=== PATIENT | female | born 1985 | race Hispanic/Latino ===

== ENCOUNTER 2019-03-07 23:58 | Emergency (ER) | payer SELFPAY ==
[2019-03-08] MEDS ORDERED: TYLENOL PO ONE (03:06)
[2019-03-08] MEDS ORDERED: IBUPROFEN PO ONE (03:06)
--- NOTE | 2019-03-08 04:25 | Emergency Department Report ---
ED Fall HPI - General Chief Complaint: Extremity Injury, Upper Stated Complaint: LEFT WRIST PAIN Source: patient Mode of arrival: Ambulatory - History of Present Illness Initial Comments: Patient is a 34-year-old white female with no past medical history presents to the ED with component of acute onset persistent severe left wrist pain after she tripped the house and fell down landing on the left wrist about 4 hours ago. Patient states that pain is worse with any active range of motion of the left wrist. Patient denies head or neck injury, chest pain, shortness of breath, numbness and tingling of left arm, abdominal pain, low back pain, dizziness, syncope or seizures. MD Complaint: fall, other (left wrist pain) -: Sudden, hour(s) (4) Fall From: standing, other (slipped and fell down on floor) When Fall Occurred: 1-3 hours [employer] Fall Witnessed: yes, by bystander Place Fall Occurred: home Loss of Consciousness: none Prolonged Down Time?: no Symptoms Prior to Fall: none, other (tripped) Location: other (left wrist) Location - Extremities: Left: Forearm (left forearm), Hand (left wrist) Severity: severe Severity scale (0 -10): 6 Quality: sharp, aching Context: tripped/slipped Associated Symptoms: denies: headache, neck pain, numbness, chest paint, shortness of breath, abdominal pain, hematuria, unable to walk, lightheaded, vertigo, confusion, other - Related Data Previous Rx's Medication Instructions Recorded Last Taken Type Cyclobenzaprine HCl [Flexeril 5 MG 5 mg PO Q8H PRN #15 tab 03/08/19 Unknown Rx TAB] Naproxen [Naprosyn TAB] 375 mg PO Q12H PRN #20 tablet 03/08/19 Unknown Rx ED Review of Systems ROS: Stated complaint: LEFT WRIST PAIN Other details as noted in HPI Constitutional: denies: chills, fever Eyes: denies: eye pain, eye discharge, vision change ENT: denies: ear pain, throat pain Respiratory: denies: cough, shortness of breath, wheezing Cardiovascular: denies: chest pain, palpitations Endocrine: no symptoms reported Gastrointestinal: denies: abdominal pain, nausea, diarrhea Genitourinary: denies: urgency, dysuria, discharge Musculoskeletal: arthralgia (LEFT WRIST). denies: back pain, joint swelling Skin: denies: rash, lesions Neurological: denies: headache, weakness, paresthesias Psychiatric: denies: anxiety, depression Hematological/Lymphatic: denies: easy bleeding, easy bruising ED Past Medical Hx - Past Medical History Previous Medical History?: No - Surgical History Past Surgical History?: Yes Additional Surgical History: c-Sec X2 - Social History Smoking Status: Current Every Day Smoker Substance Use Type: Cocaine, Marijuana - Medications Home Medications: Home Medications Medication Instructions Recorded Confirmed Last Taken Type Cyclobenzaprine HCl [Flexeril 5 MG 5 mg PO Q8H PRN #15 tab 03/08/19 Unknown Rx TAB] Naproxen [Naprosyn TAB] 375 mg PO Q12H PRN #20 tablet 03/08/19 Unknown Rx ED Physical Exam - General Limitations: No Limitations General appearance: alert, in no apparent distress - Head Head exam: Present: atraumatic, normocephalic, normal inspection - Eye Eye exam: Present: normal appearance, PERRL, EOMI Pupils: Present: normal accommodation - ENT ENT exam: Present: normal exam, normal orophraynx, mucous membranes moist, TM's normal bilaterally, normal external ear exam - Neck Neck exam: Present: normal inspection, full ROM - Respiratory Respiratory exam: Present: normal lung sounds bilaterally. Absent: respiratory distress, wheezes, rales, rhonchi, chest wall tenderness, decreased breath sounds - Cardiovascular Cardiovascular Exam: Present: regular rate, normal rhythm, normal heart sounds. Absent: systolic murmur, diastolic murmur, rubs, gallop - GI/Abdominal GI/Abdominal exam: Present: soft, normal bowel sounds. Absent: distended, ten derness, guarding, rebound, hyperactive bowel sounds, hypoactive bowel sounds, organomegaly - Extremities Exam Extremities exam: Present: normal inspection, full ROM, tenderness (Left wrist tenderness), normal capillary refill - Back Exam Back exam: Present: normal inspection, full ROM. Absent: tenderness, CVA tenderness (R), CVA tenderness (L), muscle spasm, paraspinal tenderness - Neurological Exam Neurological exam: Present: alert, oriented X3, CN II-XII intact, normal gait, reflexes normal - Psychiatric Psychiatric exam: Present: normal affect, normal mood - Skin Skin exam: Present: warm, dry, intact, normal color. Absent: rash ED Course Vital Signs 03/08/19 00:03 Temperature 98.2 F Pulse Rate 91 H Respiratory 16 Rate Blood Pressure 105/64 O2 Sat by Pulse 98 Oximetry - Reevaluation(s) Reevaluation #1: 03/08/19 04:48 This is a 34-year-old female who presented to the ED with left wrist pain after she tripped and fell down on the floor about 4 hours ago. In the ED, patient is alert and oriented 3 and is not in distress but appears to be in pain. Vital signs are stable. Left wrist x-ray shows no acute fractures or subluxations. Patient was treated for pain and the left wrist splinted with a Velcro splint. Patient was discharged home on pain medications and muscle relaxants and advised to follow-up with her primary care physician in 5-7 days for reevaluation. Patient was also advised to return to the ED immediately if symptoms get worse. ED Medical Decision Making - Radiology Data Left wrist x-ray shows no acute fractures or subluxations. - Medical Decision Making This is a 34-year-old female who presented to the ED with left wrist pain after she tripped and fell down on the floor about 4 hours ago. In the ED, patient is alert and oriented 3 and is not in distress but appears to be in pain. Vital signs are stable. Left wrist x-ray shows no acute fractures or subluxations. Patient was treated for pain and the left wrist splinted with a Velcro splint. Patient was discharged home on pain medications and muscle relaxants and advised to follow-up with her primary care physician in 5-7 days for reevaluation. Patient was also advised to return to the ED immediately if symptoms get worse. - Differential Diagnosis wrist fracture; lwrist sprain; forearm contusion Critical care attestation.: If time is entered above; I have spent that time in minutes in the direct care of this critically ill patient, excluding procedure time. ED Disposition Clinical Impression: Sprain of wrist, left Qualifiers: Encounter type: initial encounter Qualified Code(s): S63.502A - Unspecified sprain of left wrist, initial encounter Contusion of left forearm Qualifiers: Encounter type: initial encounter Qualified Code(s): S50.12XA - Contusion of left forearm, initial encounter Disposition: DC- TO HOME OR SELFCARE Is pt being admited?: No Does the pt Need Aspirin: No Condition: Stable Instructions: Wrist Injury (ED), Wrist Sprain (ED), Muscle Strain (ED) Additional Instructions: Take medications with food, drink plenty of fluids and follow up with your Primary care Physician in 5-7 days for further reevaluation. Return to the ED immediately if symptoms get worse. Prescriptions: Cyclobenzaprine HCl [Flexeril 5 MG TAB] 5 mg PO Q8H PRN #15 tab PRN Reason: Muscle Spasm Naproxen [Naprosyn TAB] 375 mg PO Q12H PRN #20 tablet PRN Reason: Pain , Severe (7-10) Referrals: PRIMARY CARE, [Primary Care Provider] - 3-5 Days Time of Disposition: 04:25 Print Language: POLISH
[2019-03-08 05:53] VITALS: BP 118/76
--- NOTE | 2019-03-11 14:21 | XRay Report ---
Left wrist, 4 views INDICATION: fall - left wrist pain. COMPARISON: None. IMPRESSION: No acute osseous or soft tissue abnormality. No significant DJD. Signer Name: Amrit Corrales Jr, MD Signed: 03/11/2019 2:16 PM Workstation Name: [id number]
== END 2019-03-08 04:33 | disposition home or self-care (01) ==
LOC: ED 23:58
DX: S63.502A Unspecified sprain of left wrist, initial encounter (principal); S50.12XA Contusion of left forearm, initial encounter; F17.200 Nicotine dependence, unspecified, uncomplicated; F14.10 Cocaine abuse, uncomplicated; F12.10 Cannabis abuse, uncomplicated; Z98.890 Other specified postprocedural states; W01.0XXA Fall on same level from slipping, tripping and stumbling without subsequent striking against object, initial encounter; Y93.89 Activity, other specified; Y92.89 Other specified places as the place of occurrence of the external cause; Y99.8 Other external cause status

== ENCOUNTER 2019-03-26 21:33 | Emergency (ER) | payer SELFPAY ==
[2019-03-26 21:56] VITALS: BP 103/74
--- NOTE | 2019-03-26 21:56 | Event Note ---
ED Screening Note Date of service: 03/26/19 Time: 21:53 ED Screening Note: 34 y o f presents to Ed cc of rectal pain x 1 hour ago sharp pain intermittent. no blood in stool This initial assessment/diagnostic orders/clinical plan/treatment(s) is/are subject to change based on patients health status, clinical progression and re- assessment by fellow clinical providers in the ED. Further treatment and workup at subsequent clinical providers discretion. Patient/guardian urged not to elope from the ED as their condition may be serious if not clinically assessed and managed. Initial orders include: acc eval
== END 2019-03-26 23:10 | disposition left against medical advice (07) ==
LOC: ED 21:33
DX: K62.89 Other specified diseases of anus and rectum (principal); Z53.21 Procedure and treatment not carried out due to patient leaving prior to being seen by health care provider

== ENCOUNTER 2019-03-27 18:44 | Emergency (ER) | payer SELFPAY ==
[2019-03-27 18:55] VITALS: BP 109/77
--- NOTE | 2019-03-27 18:57 | Event Note ---
ED Screening Note Date of service: 03/27/19 Time: 18:54 ED Screening Note: 34 y o female presents to ED cc of rectal pain pt was here yesterday but left due to the wait time without being seen This initial assessment/diagnostic orders/clinical plan/treatment(s) is/are subject to change based on patients health status, clinical progression and re- assessment by fellow clinical providers in the ED. Further treatment and workup at subsequent clinical providers discretion. Patient/guardian urged not to elope from the ED as their condition may be serious if not clinically assessed and managed. Initial orders include: acc eval
--- NOTE | 2019-03-27 20:50 | Emergency Department Report ---
ED General Adult HPI - General Chief complaint: Rectal Pain Stated complaint: COLON/RECTAL PAIN Time Seen by Provider: 03/27/19 18:54 Source: patient Mode of arrival: Ambulatory Limitations: No Limitations - History of Present Illness Initial comments: Patient is a 34-year-old white female with no past medical history presents to the ED with complaint of acute onset persistent severe rectal pain for the last 2 days. Patient admits to having rectal intercourse with no protection, the last episode of which was 3 days ago. Patient denies vaginal bleeding, hematochezia, dysuria, dizziness, fever, chills, abdominal pain, nausea and vomiting. MD Complaint: Rectal pain -: Sudden, days(s) (3) Location: abdomen (rectum) Radiation: non-radiation Severity scale (0 -10): 1 Quality: burning, aching, sharp Consistency: intermittent Improves with: none Worsens with: none Associated Symptoms: denies other symptoms. denies: confusion, chest pain, cough, diaphoresis, fever/chills, headaches, loss of appetite, nausea/vomiting, shortness of breath, weakness Treatments Prior to Arrival: none - Related Data Previous Rx's Medication Instructions Recorded Last Taken Type Cyclobenzaprine HCl [Flexeril 5 MG 5 mg PO Q8H PRN #15 tab 03/08/19 Unknown Rx TAB] Naproxen [Naprosyn TAB] 375 mg PO Q12H PRN #20 tablet 03/08/19 Unknown Rx Docusate Sodium [Colace CAP] 100 mg PO BID PRN #30 capsule 03/27/19 Unknown Rx Ibuprofen [Motrin] 400 mg PO Q8H PRN #20 tablet 03/27/19 Unknown Rx Allergies Allergy/AdvReac Type Severity Reaction Status Date / Time No Known Allergies Allergy Unverified 03/26/19 21:54 ED Review of Systems ROS: Stated complaint: COLON/RECTAL PAIN Other details as noted in HPI Constitutional: denies: chills, fever Eyes: denies: eye pain, eye discharge, vision change ENT: denies: ear pain, throat pain Respiratory: denies: cough, shortness of breath, wheezing Cardiovascular: denies: chest pain, palpitations Endocrine: no symptoms reported Gastrointestinal: other (RECTAL PAIN). denies: abdominal pain, nausea, vomiting, diarrhea, hematemesis Genitourinary: denies: urgency, dysuria, discharge Musculoskeletal: denies: back pain, joint swelling, arthralgia Skin: denies: rash, lesions Neurological: denies: headache, weakness, paresthesias Psychiatric: denies: anxiety, depression Hematological/Lymphatic: denies: easy bleeding, easy bruising ED Past Medical Hx - Past Medical History Previous Medical History?: No - Surgical History Additional Surgical History: c-Sec X2 - Social History Smoking Status: Current Every Day Smoker Substance Use Type: Alcohol, Cocaine, Marijuana, Methamphetamines - Medications Home Medications: Home Medications Medication Instructions Recorded Confirmed Last Taken Type Cyclobenzaprine HCl [Flexeril 5 MG 5 mg PO Q8H PRN #15 tab 03/08/19 Unknown Rx TAB] Naproxen [Naprosyn TAB] 375 mg PO Q12H PRN #20 tablet 03/08/19 Unknown Rx Docusate Sodium [Colace CAP] 100 mg PO BID PRN #30 capsule 03/27/19 Unknown Rx Ibuprofen [Motrin] 400 mg PO Q8H PRN #20 tablet 03/27/19 Unknown Rx ED Physical Exam - General Limitations: No Limitations General appearance: alert, in no apparent distress - Head Head exam: Present: atraumatic, normocephalic, normal inspection - Eye Eye exam: Present: normal appearance, PERRL, EOMI. Absent: scleral icterus, conjunctival injection, nystagmus, periorbital swelling, periorbital tenderness Pupils: Present: normal accommodation - ENT ENT exam: Present: normal exam, normal orophraynx, mucous membranes moist, TM's normal bilaterally, normal external ear exam - Neck Neck exam: Present: normal inspection, full ROM - Respiratory Respiratory exam: Present: normal lung sounds bilaterally. Absent: respiratory distress, wheezes, rhonchi, stridor, chest wall tenderness, decreased breath sounds - Cardiovascular Cardiovascular Exam: Present: regular rate, normal rhythm, normal heart sounds. Absent: systolic murmur, diastolic murmur, rubs, gallop - GI/Abdominal GI/Abdominal exam: Present: soft, normal bowel sounds. Absent: tenderness, guarding, hyperactive bowel sounds, organomegaly, mass - Rectal Rectal exam: Present: normal inspection, normal rectal tone, fecal impaction. Absent: hemorrhoids, tenderness - Extremities Exam Extremities exam: Present: normal inspection, full ROM, normal capillary refill - Back Exam Back exam: Present: normal inspection, full ROM. Absent: tenderness, CVA tenderness (R), CVA tenderness (L), muscle spasm, paraspinal tenderness - Neurological Exam Neurological exam: Present: alert, oriented X3, CN II-XII intact, normal gait, reflexes normal - Psychiatric Psychiatric exam: Present: normal affect, normal mood - Skin Skin exam: Present: warm, dry, intact, normal color. Absent: rash ED Course Vital Signs 03/27/19 18:54 Temperature 98 F Pulse Rate 68 Respiratory 18 Rate Blood Pressure 109/77 O2 Sat by Pulse 98 Oximetry - Reevaluation(s) Reevaluation #1: 03/27/19 20:49 This is a 34-year-old white female with no past medical history who presented to the ED with acute onset persistent rectal pain for 2 days. Patient is alert and oriented 3 and is not in distress. Patient was discharged home on ibuprofen and Colace to treat rectal pain and constipation respectively. Patient was advised to follow-up with her primary care physician in 7-10 days for reevaluation or return to the ED immediately if symptoms get worse. ED Medical Decision Making - Medical Decision Making This is a 34-year-old white female with no past medical history who presented to the ED with acute onset persistent rectal pain for 2 days. Patient is alert and oriented 3 and is not in distress. Patient was discharged home on ibuprofen and Colace to treat rectal pain and constipation respectively. Patient was advised to follow-up with her primary care physician in 7-10 days fo r reevaluation or return to the ED immediately if symptoms get worse. - Differential Diagnosis RECTAL PAIN; HEMORRHOIDS; CONSTIPATION; RECTAL TEAR Critical care attestation.: If time is entered above; I have spent that time in minutes in the direct care of this critically ill patient, excluding procedure time. ED Disposition Clinical Impression: Anal or rectal pain Constipation Qualifiers: Constipation type: unspecified constipation type Qualified Code(s): K59.00 - Constipation, unspecified Disposition: - TO HOME OR SELFCARE Is pt being admited?: No Does the pt Need Aspirin: No Condition: Stable Instructions: Constipation (ED) Additional Instructions: Drink plenty of fluids and follow-up with your primary care physician in 7-10 days for reevaluation. Return to the ED immediately if symptoms worse. Prescriptions: Docusate Sodium [Colace CAP] 100 mg PO BID PRN #30 capsule PRN Reason: Constipation Ibuprofen [Motrin] 400 mg PO Q8H PRN #20 tablet PRN Reason: Pain , Severe (7-10) Referrals: PRIMARY CARE,MD [Primary Care Provider] - 3-5 Days Time of Disposition: 20:46 Print Language: [id number]
== END 2019-03-27 20:55 | disposition home or self-care (01) ==
LOC: ED 18:44
DX: K59.00 Constipation, unspecified (principal); F17.200 Nicotine dependence, unspecified, uncomplicated; F12.10 Cannabis abuse, uncomplicated; F14.10 Cocaine abuse, uncomplicated
CPT/HCPCS: 99281

== ENCOUNTER 2021-03-06 05:44 | Emergency (ER) | payer SELFPAY ==
[2021-03-06 06:35] VITALS: BP 131/94
[2021-03-06] MEDS ORDERED: HYDROcodone/ACETAMINOPHEN 5-325 MG TAB PO ONE (10:34)
--- NOTE | 2021-03-06 10:44 | Emergency Department Report ---
ED General Adult HPI - General Chief complaint: Extremity Injury, Upper Stated complaint: SOB DIZZINESS NUMBNESS Time Seen by Provider: 03/06/21 10:11 Source: patient Mode of arrival: Ambulatory Limitations: No Limitations - History of Present Illness Initial comments: Patient is a 36-year-old female presents emergency room with complaints of shortness of breath that initially began a couple days ago but has worsened since last night. Patient states that she had a fall and someone fell on her arm a couple days ago and she had a fracture of her humerus and was seen at [facility] at that time and placed in a sling and given orthopedic follow-up . She states that she has not yet seen orthopedic doctor. She states that she was also having URI symptoms at that time and they tested her at [facility] and she was positive for COVID-19. She states her symptoms have been lightheadedness, shortness of breath, cough, diarrhea, subjective fever, chills, body aches, one episode of vomiting. She is able to tolerate p.o. intake. No other past medical history. No allergies to medications. She denies any recent surgery or recent travel. She is a smoker. - Related Data Previous Rx's Medication Instructions Recorded Last Taken Type Cyclobenzaprine HCl [Flexeril 5 MG 5 mg PO Q8H PRN #15 tab 03/08/19 Unknown Rx TAB] Naproxen [Naprosyn TAB] 375 mg PO Q12H PRN #20 tablet 03/08/19 Unknown Rx Docusate Sodium [Colace CAP] 100 mg PO BID PRN #30 capsule 03/27/19 Unknown Rx Ibuprofen [Motrin] 400 mg PO Q8H PRN #20 tablet 03/27/19 Unknown Rx Allergies Allergy/AdvReac Type Severity Reaction Status Date / Time No Known Allergies Allergy Unverified 03/26/19 21:54 ED Review of Systems ROS: Stated complaint: SOB DIZZINESS NUMBNESS Other details as noted in HPI Comment: All other systems reviewed and negative ED Past Medical Hx - Past Medical History Previous Medical History?: No - Surgical History Past Surgical History?: Yes Additional Surgical History: c-Sec X2 - Social History Smoking Status: Current Every Day Smoker Substance Use Type: Alcohol, Cocaine, Marijuana, Methamphetamines - Medications Home Medications: Home Medications Medication Instructions Recorded Confirmed Last Taken Type Cyclobenzaprine HCl [Flexeril 5 MG 5 mg PO Q8H PRN #15 tab 03/08/19 Unknown Rx TAB] Naproxen [Naprosyn TAB] 375 mg PO Q12H PRN #20 tablet 03/08/19 Unknown Rx Docusate Sodium [Colace CAP] 100 mg PO BID PRN #30 capsule 03/27/19 Unknown Rx Ibuprofen [Motrin] 400 mg PO Q8H PRN #20 tablet 03/27/19 Unknown Rx ED Physical Exam - General Limitations: No Limitations General appearance: alert, in no apparent distress - Head Head exam: Present: atraumatic, normocephalic - Eye Eye exam: Present: normal appearance - ENT ENT exam: Present: mucous membranes moist - Respiratory Respiratory exam: Present: normal lung sounds bilaterally. Absent: respiratory distress, wheezes, rales, rhonchi, stridor, chest wall tenderness, accessory muscle use, decreased breath sounds, prolonged expiratory - Cardiovascular Cardiovascular Exam: Present: regular rate, normal rhythm, normal heart sounds. Absent: systolic murmur, diastolic murmur, rubs, gallop - Extremities Exam Extremities exam: Present: other (ecchymosis and ttp to the right humerus, pt has sling, neurovascularly intact) - Neurological Exam Neurological exam: Present: alert, oriented X3 - Psychiatric Psychiatric exam: Present: normal affect, normal mood - Skin Skin exam: Present: warm, dry ED Course Vital Signs 03/06/21 03/06/21 06:33 13:53 Temperature 97.8 F Pulse Rate 86 77 Respiratory 16 Rate Blood Pressure 131/94 O2 Sat by Pulse 97 100 Oximetry ED Medical Decision Making - Lab Data Result diagrams: 03/06/21 10:37 03/06/21 10:37 Lab Results 03/06/21 03/06/21 03/06/21 Range/Units 10:37 10:37 10:37 WBC 6.0 (4.5-11.0) K/mm3 RBC 3.98 (3.65-5.03) M/mm3 Hgb 13.0 (10.1-14.3) gm/dl Hct 37.1 (30.3-42.9) % MCV 93 (79-97) fl MCH 33 H (28-32) pg MCHC 35 H (30-34) % RDW 14.7 (13.2-15.2) % Plt Count 260 (140-440) K/mm3 Lymph % (Auto) 27.9 (13.4-35.0) % Dent % (Auto) 7.4 H (0.0-7.3) % Eos % (Auto) 1.2 (0.0-4.3) % Baso % (Auto) 0.3 (0.0-1.8) % Lymph # (Auto) 1.6 (1.2-5.4) K/mm3 Dent # (Auto) 0.4 (0.0-0.8) K/mm3 Eos # (Auto) 0.1 (0.0-0.4) K/mm3 Baso # (Auto) 0.0 (0.0-0.1) K/mm3 Seg Neutrophils % 63.2 (40.0-70.0) % Seg Neutrophils # 3.7 (1.8-7.7) K/mm3 D-Dimer 641.67 H (0-234) ng/mlDDU Sodium 139 (137-145) mmol/L Potassium 4.0 (3.6-5.0) mmol/L Chloride 102.1 (98-107) mmol/L Carbon Dioxide 31 H (22-30) mmol/L Anion Gap 10 mmol/L BUN 7 (7-17) mg/dL Creatinine 0.4 L (0.6-1.2) mg/dL Estimated GFR > 60 ml/min BUN/Creatinine Ratio 18 % Glucose 95 (65-100) mg/dL Calcium 8.5 (8.4-10.2) mg/dL Total Bilirubin 0.20 (0.1-1.2) mg/dL AST 18 (5-40) units/L ALT 10 (7-56) units/L Alkaline Phosphatase 83 (35-129) units/L Troponin T < 0.010 (0.00-0.029) ng/mL NT-Pro-B Natriuret Pep 92.55 (0-450) pg/mL Total Protein 6.9 (6.3-8.2) g/dL Albumin 3.5 L (3.9-5) g/dL Albumin/Globulin Ratio 1.0 % HCG, Qual (Negative) 03/06/21 Range/Units 10:37 WBC (4.5-11.0) K/mm3 RBC (3.65-5.03) M/mm3 Hgb (10.1-14.3) gm/dl Hct (30.3-42.9) % MCV (79-97) fl MCH (28-32) pg MCHC (30-34) % RDW (13.2-15.2) % Plt Count (140-440) K/mm3 Lymph % (Auto) (13.4-35.0) % Dent % (Auto) (0.0-7.3) % Eos % (Auto) (0.0-4.3) % Baso % (Auto) (0.0-1.8) % Lymph # (Auto) (1.2-5.4) K/mm3 Dent # (Auto) (0.0-0.8) K/mm3 Eos # (Auto) (0.0-0.4) K/mm3 Baso # (Auto) (0.0-0.1) K/mm3 Seg Neutrophils % (40.0-70.0) % Seg Neutrophils # (1.8-7.7) K/mm3 D-Dimer (0-234) ng/mlDDU Sodium (137-145) mmol/L Potassium (3.6-5.0) mmol/L Chloride (98-107) mmol/L Carbon Dioxide (22-30) mmol/L Anion Gap mmol/L BUN (7-17) mg/dL Creatinine (0.6-1.2) mg/dL Estimated GFR ml/min BUN/Creatinine Ratio % Glucose (65-100) mg/dL Calcium (8.4-10.2) mg/dL Total Bilirubin (0.1-1.2) mg/dL AST (5-40) units/L ALT (7-56) units/L Alkaline Phosphatase (35-129) units/L Troponin T (0.00-0.029) ng/mL NT-Pro-B Natriuret Pep (0-450) pg/mL Total Protein (6.3-8.2) g/dL Albumin (3.9-5) g/dL Albumin/Globulin Ratio % HCG, Qual Negative (Negative) - EKG Data EKG shows normal: sinus rhythm, axis, intervals, QRS complexes Rate: normal - EKG Data 03/06/21 13:49 Nonspecific T wave inversion V1 V2 No STEMI - Radiology Data Radiology results: report reviewed Ordering Physician: EDYTA GIRON Date of Service: 03/06/21 Procedure(s): XR chest routine 2V Accession Number(s): [id number] cc: EDYTA GIRON Fluoro Time In Minutes: CHEST 2 VIEWS INDICATION / CLINICAL INFORMATION: SOB. COMPARISON: None available. FINDINGS: SUPPORT DEVICES: None. HEART / MEDIASTINUM: No significant abnormality. LUNGS / PLEURA: No significant pulmonary or pleural abnormality. No pneumothorax. ADDITIONAL FINDINGS: No significant additional findings. IMPRESSION: 1. No acute findings. Signer Name: Jolene Ford MD Signed: 03/06/2021 11:57 AM Workstation Name: [id number] Transcribed By: Dictated By: Jolene Ford MD Electronically Authenticated By: Jolene Ford MD Signed Date/Time: 03/06/21 1157 DD/ 1156 TD/TT: Ordering Physician: EDYTA GIRON Date of Service: 03/06/21 Procedure(s): CT angio chest Accession Number(s): [id number] cc: EDYTA GIRON CTA CHEST WITH IV CONTRAST INDICATION / CLINICAL INFORMATION: SOB, elevated d-dimer. TECHNIQUE: Axial CT images were obtained through the chest after injection of 75 IV contrast. 3 plane MIP and/or 3D reconstructions were produced. All CT scans at this location are performed using CT dose reduction for ALARA by means of automated exposure control. COMPARISON: Chest radiograph earlier today. FINDINGS: PULMONARY ARTERIES: No pulmonary emboli. THORACIC AORTA: No significant abnormality. HEART: No significant abnormality. CORONARY ARTERIES: No significant calcification. PLEURA: No pleural effusion. No pneumothorax. LYMPH NODES: No significant adenopathy. LUNGS: No acute air space or interstitial disease. ADDITIONAL FINDINGS: None. UPPER ABDOMEN: No acute findings. SKELETAL STRUCTURES: No significant osseous abnormality. IMPRESSION: 1. No CT evidence for pulmonary embolism. 2. No acute findings. Signer Name: Jolene Ford MD Signed: 03/06/2021 1:41 PM Workstation Name: [id number] Transcribed By: Dictated By: Jolene Ford MD Electronically Authenticated By: Jolene Ford MD Signed Date/Time: 03/06/21 1341 DD/ 1337 TD/TT: - Medical Decision Making Patient is a 36-year-old female presents emergency room with complaints of shortness of breath that initially began a couple days ago but has worsened since last night. Patient states that she had a fall and someone fell on her arm a couple days ago and she had a fracture of her humerus and was seen at [facility] at that time and placed in a sling and given orthopedic follow- up. She states that she has not yet seen orthopedic doctor. She states that she was also having URI symptoms at that time and they tested her at [facility] and she was positive for COVID-19. She states her symptoms have been lightheadedness, shortness of breath, cough, diarrhea, subjective fever, chills, body aches, one episode of vomiting. She is able to tolerate p.o. intake. No other past medical history. No allergies to medications. She denies any recent surgery or recent travel. She is a smoker. Vitals are normal. On exam:ecchymosis and ttp to the right humerus, pt has sling, neurovascularly intact. EKG with nonspecific T wave inversion in V1 and V2, no STEMI. Chest x- ray: 1. No acute findings. Lab significant for elevated D-dimer, otherwise stable. CT angio chest: 1. No CT evidence for pulmonary embolism. 2. No acute findings. Discussed all results with patient and answered questions. Advised patient Please follow-up with your primary care doctor. Please follow-up with the orthopedic doctor you were given by [facility]. Return to emergency room for any new or worsening symptoms. Critical care attestation.: If time is entered above; I have spent that time in minutes in the direct care of this critically ill patient, excluding procedure time. ED Disposition Clinical Impression: COVID-19, SOB (shortness of breath) Disposition: 01 HOME / SELF CARE / HOMELESS Is pt being admited?: No Does the pt Need Aspirin: No Condition: Stable Instructions: COVID-19 Additional Instructions: Please follow-up with your primary care doctor. Please follow-up with the orthopedic doctor you were given by [facility]. Return to emergency room for any new or worsening symptoms. Referrals: PRIMARY CARE,MD [Primary Care Provider] - 2-3 Days your, orthopedic doctor [Other] - 2-3 Days Time of Disposition: 13:50 Print Language: GEORGIAN
[2021-03-06 11:00] LABS: Hematocrit 37.1 % (30.3-42.9); Mean Corpuscular HGB Conc 35 % (30-34); Mean Corpuscular Volume 93 fl (79-97); Platelet Count 260 K/mm3 (140-440); Red Blood Count 3.98 M/mm3 (3.65-5.03); Red Cell Distribution Width 14.7 % (13.2-15.2)
[2021-03-06 11:11] LABS: Basophils % (Auto) 0.3 % (0.0-1.8); Eosinophils # (Auto) 0.1 K/mm3 (0.0-0.4); Eosinophils % (Auto) 1.2 % (0.0-4.3); Lymphocytes # (Auto) 1.6 K/mm3 (1.2-5.4); Lymphocytes % (Auto) 27.9 % (13.4-35.0); Monocytes # (Auto) 0.4 K/mm3 (0.0-0.8); Monocytes % (Auto) 7.4 % (0.0-7.3)
[2021-03-06 11:27] LABS: Alanine Aminotransferase 10 units/L (7-56); Albumin 3.5 g/dL (3.9-5); Blood Urea Nitrogen 7 mg/dL (7-17); Calcium 8.5 mg/dL (8.4-10.2); Hemolysis Index 6
[2021-03-06 11:38] LABS: BUN/Creatinine Ratio 18
--- NOTE | 2021-03-06 12:02 | XRay Report ---
CHEST 2 VIEWS INDICATION / CLINICAL INFORMATION: SOB. COMPARISON: None available. FINDINGS: SUPPORT DEVICES: None. HEART / MEDIASTINUM: No significant abnormality. LUNGS / PLEURA: No significant pulmonary or pleural abnormality. No pneumothorax. ADDITIONAL FINDINGS: No significant additional findings. IMPRESSION: 1. No acute findings. Signer Name: Jolene Ford MD Signed: 03/06/2021 11:57 AM Workstation Name: [id number]
--- NOTE | 2021-03-06 13:45 | Cat Scan Report ---
CTA CHEST WITH IV CONTRAST INDICATION / CLINICAL INFORMATION: SOB, elevated d-dimer. TECHNIQUE: Axial CT images were obtained through the chest after injection of 75 IV contrast. 3 plane MIP and/or 3D reconstructions were produced. All CT scans at this location are performed using CT dose reductio n for ALARA by means of automated exposure control. COMPARISON: Chest radiograph earlier today. FINDINGS: PULMONARY ARTERIES: No pulmonary emboli. THORACIC AORTA: No significant abnormality. HEART: No significant abnormality. CORONARY ARTERIES: No significant calcification. PLEURA: No pleural effusion. No pneumothorax. LYMPH NODES: No significant adenopathy. LUNGS: No acute air space or interstitial disease. ADDITIONAL FINDINGS: None. UPPER ABDOMEN: No acute findings. SKELETAL STRUCTURES: No significant osseous abnormality. IMPRESSION: 1. No CT evidence for pulmonary embolism. 2. No acute findings. Signer Name: Jolene Ford MD Signed: 03/06/2021 1:41 PM Workstation Name: [id number]
--- NOTE | 2021-03-08 09:43 | Electrocardiograph Report ---
[facility] Test Date: 2021-03-06 Test Time: 10:30:49 Pat Name: KATERYNA SALAZAR Department: Room: Gender: F Pit Clerk: : 1985 Requested By: YOLY BARRAGAN Order Number: [id number] Reading MD: Paul Hoyos Measurements Intervals [place] Rate: 68 P: 72 CO: 158 QRS: 85 QRSD: 82 T: 88 QT: 434 QTc: 461 Interpretive Statements Sinus rhythm Abnrm T, consider ischemia, anterolateral lds No previous ECG available for comparison Electronically Signed On 03-08-2021 9:43:25 EDT by Paul Hoyos
== END 2021-03-06 14:26 | disposition home or self-care (01) ==
LOC: ED 05:44
DX: U07.1 COVID-19 (principal); R06.02 Shortness of breath; F17.200 Nicotine dependence, unspecified, uncomplicated; F12.90 Cannabis use, unspecified, uncomplicated; F15.90 Other stimulant use, unspecified, uncomplicated; F14.90 Cocaine use, unspecified, uncomplicated; Z79.899 Other long term (current) drug therapy; Z98.890 Other specified postprocedural states
CPT/HCPCS: 36415; 71046; 71275; 80053; 83880; 84484; 84703; 85025; 85379; 93005; 99284; Q9967